=== PATIENT | female | born 1950 | race Caucasian/White ===

== ENCOUNTER 2018-06-11 02:55 | Inpatient (IN) | payer MEDICARE, MEDICAID ==
[~2018-06-11] VITALS: Ht 157.5 cm; Wt 120.2 kg
[~2018-06-11 02:55] MED LIST: ACET-3161 PO; ALPR-395 PO; AMIT10TA6 PO; AMLO5TAB88 PO; ATOR20TA65 PO; BENA5TAB6 PO; BUSP30TA2 PO; CLOP75TA16 PO; COR6 PO; DEXL60CA3 PO; DOCU-150 PO; FAMO-134 PO; FOLI-43 PO; FURO-152 PO; GABA800T97 PO; HYDR-3992 PO; HYDR-4009 PO; IBUP-2030 PO; ISOS60TA4 PO; LEVO500T2 MT; LORA0.5T2 PO; NITR0.4T49 SL; OXYB5TAB PO; PANT40TA4 PO; SENN-27 PO; SERT-112 PO; SOLI10TA PO; SULF1TAB47 PO; TEMA15CA PO; TETR12.52 PO; TRAZ-213 PO; ZOLP5TAB8 PO; lipozene PO
[2018-06-11] MEDS ORDERED: NALOXONE HCL 0.4 MG/ML 1ML VIAL IV ONE (03:45)
[2018-06-11 04:03] LABS: BASOPHILS % 1.4 % (0.0-2.0); EOSINOPHILS % 1.3 % (0.0-5.0); HEMATOCRIT. 35.9 % (36.0-48.0); HEMOGLOBIN. 11.5 g/dL (12.0-16.0); LYMPHOCYTES % 32.1 % (20.0-50.0); MEAN CORPUSCULAR HEMOGLOBIN 27.4 pg (28.0-32.0); MEAN CORPUSCULAR VOLUME 85.3 fL (81.0-99.0); MEAN PLATELET VOLUME 7.6 fl (7.4-10.4); MONOCYTES % 9.3 % (2.0-8.0); NEUTROPHILS % 55.9 % (40.0-76.0); PLATELET 249 x1000/uL (130-400); RED CELL DISTRIBUTION WIDTH 17.6 % (11.6-14.6)
[2018-06-11 04:08] LABS: PROTHROMBIN TIME 9.9 sec (9.1-11.1)
[2018-06-11 04:12] LABS: CHLORIDE 108 mEq/L (98-107)
[2018-06-11 04:18] LABS: ETHANOL BLOOD < 10 mg/dL; LDL CHOLESTEROL 79 mg/dL (5-100)
[2018-06-11 04:39] LABS: CLARITY URINE CLEAR (CLEAR); COLOR URINE YELLOW (YELLOW); KETONES URINE NEGATIVE (NEGATIVE); LEUKOCYTE ESTERASE URINE TRACE (NEGATIVE); NITRITE URINE NEGATIVE (NEGATIVE); OCCULT BLOOD URINE NEGATIVE (NEGATIVE); PROTEIN URINE NEGATIVE (NEGATIVE); SPECIFIC GRAVITY URINE 1.005 (1.005-1.030); UROBILINOGEN URINE 0.2 E.U./dL (0.2-1.0)
[2018-06-11 04:55] LABS: *AMPHETAMINES SCREEN URINE NEGATIVE (NEGATIVE); *BARBITURATES SCREEN URINE NEGATIVE (NEGATIVE); *BENZODIAZEPINES SCREEN URINE PRESUMTIVE POSITIVE (NEGATIVE); *COCAINE SCREEN URINE NEGATIVE (NEGATIVE); CANNABINOID URINE SCREEN NEGATIVE (NEGATIVE); METHADONE URINE SCREEN NEGATIVE (NEGATIVE); OPIATES URINE SCREEN PRESUMTIVE POSITIVE (NEGATIVE); PHENCYCLIDINE URINE SCREEN NEGATIVE (NEGATIVE)
[2018-06-11] MEDS ORDERED: CEFTRIAXONE 1 G PREMIX 50 ML IV NR (05:15)
[2018-06-11] MEDS ORDERED: ACETAMINOPHEN 325MG TABLET PO PRN (14:30)
[2018-06-11] MEDS ORDERED: CLONIDINE 0.1MG TABLET PO PRN (14:30)
[2018-06-11] MEDS ORDERED: ONDANSETRON HCL 4MG/2ML INJ IV PRN (14:30)
[2018-06-11] MEDS ORDERED: IPRATROPIUM/ALBUTEROL 0.5-3(2.5)MG/3ML NEB INH PRN (14:30)
[2018-06-11] MEDS ORDERED: GUAIFENESIN 200MG/10ML SUGAR FREE UDC PO PRN (14:30)
[2018-06-11] MEDS ORDERED: MAGNESIUM/ALUMINUM HYDROXIDE/SIMETHICONE 30ML UDC PO PRN (14:30)
[2018-06-11] MEDS ORDERED: HYDROCODONE/ACETAMINOPHEN 5/325MG TABLET PO PRN (15:00)
[2018-06-11] MEDS ORDERED: IPRATROPIUM/ALBUTEROL 0.5-3(2.5)MG/3ML NEB HHN PRN (15:00)
[2018-06-12] VITALS: BP 149/82
[2018-06-12 01:29] VITALS: BP 138/70
[2018-06-12 04:00] VITALS: BP 149/82
[2018-06-12 08:00] VITALS: BP 145/79
[2018-06-12] MEDS ORDERED: BENAZEPRIL 5MG TABLET PO SCH (09:00)
[2018-06-12] MEDS ORDERED: AMITRIPTYLINE 10MG TABLET PO SCH (09:00)
[2018-06-12] MEDS ORDERED: CARVEDILOL 6.25 MG TABLET PO SCH (09:00)
[2018-06-12] MEDS ORDERED: SERTRALINE HCL 100MG TABLET PO SCH (09:00)
[2018-06-12] MEDS ORDERED: ENOXAPARIN 30MG/0.3ML SYR SUBCUT SCH (09:00)
[2018-06-12 12:51] LABS: BASOPHILS % 0.9 % (0.0-2.0); EOSINOPHILS % 0.8 % (0.0-5.0); HEMATOCRIT. 38.2 % (36.0-48.0); HEMOGLOBIN. 12.3 g/dL (12.0-16.0); LYMPHOCYTES % 21.2 % (20.0-50.0); MEAN CORPUSCULAR HEMOGLOBIN 27.4 pg (28.0-32.0); MEAN CORPUSCULAR VOLUME 85.5 fL (81.0-99.0); MEAN PLATELET VOLUME 7.8 fl (7.4-10.4); MONOCYTES % 10.9 % (2.0-8.0); NEUTROPHILS % 66.2 % (40.0-76.0); PLATELET 264 x1000/uL (130-400); RED BLOOD CELL COUNT 4.47 mill/uL (4.2-5.4); RED CELL DISTRIBUTION WIDTH 17.1 % (11.6-14.6)
[2018-06-12 12:52] LABS: CHLORIDE 107 mEq/L (98-107)
[2018-06-12 15:45] VITALS: BP 135/75
[2018-06-13] MEDS ORDERED: SODIUM CHLORIDE 0.9% INJ 3ML FLUSH IVF SCH (06:00)
[2018-06-13] MEDS ORDERED: ATORVASTATIN CALCIUM 20MG TABLET PO SCH (21:00)
== END 2018-06-12 14:40 | disposition home or self-care (01) | DRG 92 ==
LOC: ER 02:55 → 5WST 05:37 → EDBEDREQ 05:41 → EDBEDREQSVC 05:41 → EDBEDREQTM 05:41 → ENRESERV 21:07
PROVIDERS: ADMIT Internal Medicine; ATTEND Internal Medicine
DX: G92 Toxic encephalopathy (principal); Z68.42 Body mass index [BMI] 45.0-49.9, adult; E78.00 Pure hypercholesterolemia, unspecified; I10 Essential (primary) hypertension; F41.1 Generalized anxiety disorder; F32.9 Major depressive disorder, single episode, unspecified; E11.9 Type 2 diabetes mellitus without complications; K21.9 Gastro-esophageal reflux disease without esophagitis; T50.995A Adverse effect of other drugs, medicaments and biological substances, initial encounter; M17.0 Bilateral primary osteoarthritis of knee; M79.7 Fibromyalgia; Z83.3 Family history of diabetes mellitus; Z86.73 Personal history of transient ischemic attack (TIA), and cerebral infarction without residual deficits; Z88.0 Allergy status to penicillin; Z88.8 Allergy status to other drugs, medicaments and biological substances; Z79.84 Long term (current) use of oral hypoglycemic drugs; Y92.89 Other specified places as the place of occurrence of the external cause; E66.9 Obesity, unspecified
CPT/HCPCS: 36415; 71045; 80048; 80305; 82962; 83721; 84484; 93005; 96365; 99285; G0482; J0696; J1650; J2310

== ENCOUNTER 2018-08-20 13:12 | Emergency (ER) | payer MEDICARE, MEDICAID ==
[~2018-08-20] VITALS: Ht 162.6 cm; Wt 127.0 kg
[2018-08-20] MEDS ORDERED: KETOROLAC 30MG/ML VIAL IV STA (13:56)
[2018-08-20] MEDS ORDERED: ONDANSETRON HCL 4MG/2ML INJ IV STA (13:56)
[2018-08-20] MEDS ORDERED: DEXAMETHASONE 10 MG/ML VIAL IV ONE (14:00)
[2018-08-20 14:51] LABS: BASOPHILS % 0.9 % (0.0-2.0); EOSINOPHILS % 1.2 % (0.0-5.0); HEMATOCRIT. 39.8 % (36.0-48.0); HEMOGLOBIN. 12.6 g/dL (12.0-16.0); LYMPHOCYTES % 17.7 % (20.0-50.0); MEAN CORPUSCULAR HEMOGLOBIN 27.4 pg (28.0-32.0); MEAN CORPUSCULAR VOLUME 86.8 fL (81.0-99.0); MEAN PLATELET VOLUME 8.1 fl (7.4-10.4); MONOCYTES % 10.2 % (2.0-8.0); PLATELET 237 x1000/uL (130-400); RED BLOOD CELL COUNT 4.59 mill/uL (4.2-5.4); RED CELL DISTRIBUTION WIDTH 14.6 % (11.6-14.6)
[2018-08-20 14:58] LABS: CHLORIDE 109 mEq/L (98-107)
[2018-08-20 17:18] VITALS: BP 140/92
== END 2018-08-20 17:43 | disposition home or self-care (01) ==
LOC: ER 13:14
DX: J06.9 Acute upper respiratory infection, unspecified (principal); R09.81 Nasal congestion; F32.9 Major depressive disorder, single episode, unspecified; E78.00 Pure hypercholesterolemia, unspecified; I10 Essential (primary) hypertension; M17.0 Bilateral primary osteoarthritis of knee; R19.7 Diarrhea, unspecified; R41.82 Altered mental status, unspecified; Z86.73 Personal history of transient ischemic attack (TIA), and cerebral infarction without residual deficits; Z79.899 Other long term (current) drug therapy; Z88.0 Allergy status to penicillin; Z88.1 Allergy status to other antibiotic agents; Z88.8 Allergy status to other drugs, medicaments and biological substances
CPT/HCPCS: 36415; 70450; 71045; 80053; 83880; 84484; 85025; 96374; 96375; 99284; J1100; J1885; J2405

== ENCOUNTER 2018-10-28 13:46 | Inpatient (IN) | payer MEDICARE, MEDICAID ==
[~2018-10-28] VITALS: Ht 152.4 cm; Wt 135.6 kg
[2018-10-28] MEDS ORDERED: IBUPROFEN 600MG TABLET PO ONE (17:45)
[2018-10-28 21:53] LABS: BASOPHILS % 0.8 % (0.0-2.0); EOSINOPHILS % 0.3 % (0.0-5.0); HEMATOCRIT. 36.4 % (36.0-48.0); HEMOGLOBIN. 12.2 g/dL (12.0-16.0); LYMPHOCYTES % 15.1 % (20.0-50.0); MEAN CORPUSCULAR VOLUME 80.3 fL (81.0-99.0); MONOCYTES % 11.8 % (2.0-8.0); PLATELET 257 x1000/uL (130-400); RED BLOOD CELL COUNT 4.53 mill/uL (4.2-5.4); RED CELL DISTRIBUTION WIDTH 13.8 % (11.6-14.6)
[2018-10-28 21:58] LABS: CHLORIDE 78 mEq/L (98-107)
[2018-10-28 22:00] LABS: INR 1.1; PROTHROMBIN TIME 10.6 sec (9.1-11.1)
[2018-10-28 22:04] LABS: CLARITY URINE CLEAR (CLEAR); COLOR URINE YELLOW (YELLOW); KETONES URINE NEGATIVE (NEGATIVE); LEUKOCYTE ESTERASE URINE 2+ (NEGATIVE); NITRITE URINE NEGATIVE (NEGATIVE); OCCULT BLOOD URINE 2+ (NEGATIVE); PROTEIN URINE NEGATIVE (NEGATIVE); SPECIFIC GRAVITY URINE 1.005 (1.005-1.030); UROBILINOGEN URINE 0.2 E.U./dL (0.2-1.0)
[2018-10-28] MEDS ORDERED: MORPHINE SULFATE 4 MG/ML CPJ (NOT FOR IM USE) IV ONE (22:15)
[2018-10-28] MEDS ORDERED: LEVOFLOXACIN 750MG PREMIX 150 ML IV ONE (22:15)
[2018-10-28] MEDS ORDERED: MAGNESIUM/ALUMINUM HYDROXIDE/SIMETHICONE 30ML UDC PO PRN (22:30)
[2018-10-28] MEDS ORDERED: NITROGLYCERIN 0.4MG TABLET SL SL PRN (22:30)
[2018-10-28] MEDS ORDERED: DEXTROSE 50% WATER 50ML SYRINGE IV PRN (22:30)
[2018-10-28] MEDS ORDERED: CLONIDINE 0.1MG TABLET PO PRN (22:30)
[2018-10-28] MEDS ORDERED: DOCUSATE SODIUM 100MG CAPSULE PO PRN (22:30)
[2018-10-28] MEDS ORDERED: ONDANSETRON HCL 4MG/2ML INJ IV PRN (22:30)
[2018-10-28] MEDS ORDERED: IPRATROPIUM/ALBUTEROL 0.5-3(2.5)MG/3ML NEB INH PRN (22:30)
[2018-10-28] MEDS ORDERED: GUAIFENESIN 200MG/10ML SUGAR FREE UDC PO PRN (22:30)
[2018-10-28] MEDS ORDERED: SODIUM CHLORIDE 0.9% 1,000 ML IV ONE (23:00)
[2018-10-28 23:16] LABS: T4 FREE 1.55 ng/dL (0.76-1.46)
[2018-10-29 00:07] LABS: FOLIC ACID (FOLATE) SERUM > 20.00 ng/mL (>5.38)
[2018-10-29 00:08] LABS: VITAMIN B12 SERUM 1183 pg/mL (211-911)
[2018-10-29] MEDS: ZOLPIDEM TARTRATE 5MG TABLET PO PRN ×2 (04:35→22:04)
[2018-10-29] MEDS ORDERED: ENOXAPARIN 40MG/0.4ML SYR SUBCUT SCH (05:21)
[2018-10-29] MEDS: INSULIN LISPRO 100 UNITS/ML SUBCUT SCH ×4 (08:09→20:16)
[2018-10-29] MEDS: BLOOD SUGAR DIAGNOSTIC STRIP TEST SCH ×4 (08:09→20:10)
[2018-10-29 08:18] LABS: CREATINE KINASE MB FRACTION 4.7 ng/mL (0.5-3.6)
[2018-10-29 08:29] LABS: CREATINE KINASE 1096 IU/L (26-192)
[2018-10-29 09:15] VITALS: BP 157/99
[2018-10-29] MEDS: TRAMADOL 50MG TABLET PO PRN ×2 (09:41→15:42)
[2018-10-29] MEDS: CARVEDILOL 3.125 MG TABLET PO SCH ×2 (10:31→20:16)
[2018-10-29] MEDS: ZINC SULFATE 220 MG ( 50 ) CAPSULE PO SCH (10:31)
[2018-10-29] MEDS: AMLODIPINE 10MG TABLET PO SCH (10:31)
[2018-10-29] MEDS: CLOPIDOGREL 75MG TABLET PO SCH (10:31)
[2018-10-29] MEDS: FAMOTIDINE 20MG TABLET PO SCH ×2 (10:31→20:15)
[2018-10-29] MEDS: ASCORBIC ACID 500 MG TABLET PO SCH ×2 (10:31→20:15)
[2018-10-29] MEDS: ASPIRIN 325MG EC TABLET PO SCH (10:32)
[2018-10-29] MEDS: CEFTRIAXONE 1 G PREMIX 50 ML IV SCH (10:44)
[2018-10-29 12:00] VITALS: BP 125/79
[2018-10-29 12:13] LABS: CHLORIDE 80 mEq/L (98-107)
[2018-10-29 12:39] LABS: *AMPHETAMINES SCREEN URINE NEGATIVE (NEGATIVE); *BARBITURATES SCREEN URINE NEGATIVE (NEGATIVE); *BENZODIAZEPINES SCREEN URINE NEGATIVE (NEGATIVE); *COCAINE SCREEN URINE NEGATIVE (NEGATIVE); METHADONE URINE SCREEN NEGATIVE (NEGATIVE); OPIATES URINE SCREEN PRESUMTIVE POSITIVE (NEGATIVE)
[2018-10-29 12:40] LABS: CANNABINOID URINE SCREEN NEGATIVE (NEGATIVE); PHENCYCLIDINE URINE SCREEN NEGATIVE (NEGATIVE)
[2018-10-29] MEDS: ACETAMINOPHEN 325MG TABLET PO PRN (14:08)
[2018-10-29 16:00] VITALS: BP 145/94
[2018-10-29 17:00] LABS: CREATINE KINASE 885 IU/L (26-192)
[2018-10-29 17:01] LABS: CREATINE KINASE MB FRACTION 4.5 ng/mL (0.5-3.6)
[2018-10-29] MEDS: SODIUM CHLORIDE 0.9% 1,000 ML IV SCH (18:48)
[2018-10-29] MEDS ORDERED: ENOXAPARIN 150MG/ML SYR SUBCUT SCH (19:00)
[2018-10-29] MEDS: ENOXAPARIN 150MG/ML SYR SUBCUT SCH (19:05)
[2018-10-29 20:00] VITALS: BP 142/76
[2018-10-29] MEDS ORDERED: ENOXAPARIN 120MG/0.8ML SYR SUBCUT SCH (21:00)
[2018-10-29] MEDS ORDERED: LEVOFLOXACIN 500MG PREMIX 100 ML IV SCH (23:00)
[2018-10-30] VITALS: BP 106/62
[2018-10-30 04:00] VITALS: BP 110/76
[2018-10-30] MEDS: ENOXAPARIN 150MG/ML SYR SUBCUT SCH ×2 (05:59→18:12)
[2018-10-30] MEDS: BLOOD SUGAR DIAGNOSTIC STRIP TEST SCH ×4 (06:02→20:56)
[2018-10-30] MEDS: INSULIN LISPRO 100 UNITS/ML SUBCUT SCH ×4 (06:07→20:55)
[2018-10-30] MEDS: SODIUM CHLORIDE 0.9% 1,000 ML IV SCH (06:11)
[2018-10-30 08:00] VITALS: BP 103/68
[2018-10-30] MEDS: CARVEDILOL 3.125 MG TABLET PO SCH ×2 (08:46→20:43)
[2018-10-30] MEDS: AMLODIPINE 10MG TABLET PO SCH (08:46)
[2018-10-30] MEDS: CLOPIDOGREL 75MG TABLET PO SCH (08:54)
[2018-10-30] MEDS: FAMOTIDINE 20MG TABLET PO SCH ×2 (08:55→20:43)
[2018-10-30] MEDS: ZINC SULFATE 220 MG ( 50 ) CAPSULE PO SCH (08:55)
[2018-10-30] MEDS: TRAMADOL 50MG TABLET PO PRN ×3 (08:55→20:43)
[2018-10-30] MEDS: ASPIRIN 325MG EC TABLET PO SCH (08:55)
[2018-10-30] MEDS: ASCORBIC ACID 500 MG TABLET PO SCH ×2 (08:55→20:43)
[2018-10-30] MEDS: CEFTRIAXONE 1 G PREMIX 50 ML IV SCH (10:59)
[2018-10-30 11:08] LABS: CHLORIDE 96 mEq/L (98-107)
[2018-10-30] MEDS: ACETAMINOPHEN 325MG TABLET PO PRN (13:18)
[2018-10-30 16:00] VITALS: BP 123/76
[2018-10-30 20:00] VITALS: BP 132/77
[2018-10-30] MEDS: ZOLPIDEM TARTRATE 5MG TABLET PO PRN (20:43)
[2018-10-30] MEDS ORDERED: LEVOFLOXACIN 500MG PREMIX 100 ML IV SCH (23:30)
[2018-10-31] VITALS (7 sets, daily range): BP systolic 118–160; BP diastolic 52–84
[2018-10-31] MEDS: TRAMADOL 50MG TABLET PO PRN ×2 (02:53→20:40)
[2018-10-31 05:51] LABS: EOSINOPHILS % 1.2 % (0.0-5.0); HEMATOCRIT. 34.7 % (36.0-48.0); HEMOGLOBIN. 11.2 g/dL (12.0-16.0); LYMPHOCYTES % 17.6 % (20.0-50.0); MEAN CORPUSCULAR HEMOGLOBIN 26.6 pg (28.0-32.0); MEAN CORPUSCULAR VOLUME 82.5 fL (81.0-99.0); MEAN PLATELET VOLUME 7.3 fl (7.4-10.4); MONOCYTES % 14.7 % (2.0-8.0); NEUTROPHILS % 65.5 % (40.0-76.0); PLATELET 253 x1000/uL (130-400); RED CELL DISTRIBUTION WIDTH 14.7 % (11.6-14.6)
[2018-10-31] MEDS: ENOXAPARIN 150MG/ML SYR SUBCUT SCH ×2 (06:35→17:46)
[2018-10-31] MEDS: BLOOD SUGAR DIAGNOSTIC STRIP TEST SCH ×3 (06:35→17:34)
[2018-10-31 07:07] LABS: CHLORIDE 99 mEq/L (98-107)
[2018-10-31 07:14] LABS: PHOSPHORUS 2.9 mg/dL (2.5-4.9)
[2018-10-31] MEDS: INSULIN LISPRO 100 UNITS/ML SUBCUT SCH ×3 (07:40→17:34)
[2018-10-31] MEDS: ACETAMINOPHEN 325MG TABLET PO PRN (07:49)
[2018-10-31] MEDS: ASPIRIN 325MG EC TABLET PO SCH (08:45)
[2018-10-31] MEDS: ASCORBIC ACID 500 MG TABLET PO SCH (08:45)
[2018-10-31] MEDS: CARVEDILOL 3.125 MG TABLET PO SCH (08:45)
[2018-10-31] MEDS: CLOPIDOGREL 75MG TABLET PO SCH (08:45)
[2018-10-31] MEDS: FAMOTIDINE 20MG TABLET PO SCH (08:45)
[2018-10-31] MEDS: AMLODIPINE 10MG TABLET PO SCH (08:45)
[2018-10-31] MEDS: ZINC SULFATE 220 MG ( 50 ) CAPSULE PO SCH (08:45)
[2018-10-31] MEDS ORDERED: CEFTRIAXONE 1 G PREMIX 50 ML IV SCH ×2 (11:00→12:00)
[2018-10-31] MEDS: SODIUM CHLORIDE 0.9% 1,000 ML IV SCH (11:09)
[2018-10-31] MEDS ORDERED: NA PHOS,M-B/NA PHOS,DI-BA ENEMA 118ML PR NR (16:30)
[2018-10-31] MEDS ORDERED: LACTULOSE 20G/30ML UDC PO PRN (16:30)
[2018-10-31] MEDS ORDERED: LEVOFLOXACIN 500MG PREMIX 100 ML IV SCH (21:00)
== END 2018-10-31 20:53 | DRG 640 ==
LOC: ER 14:48 → 8WST 22:09 → EDBEDREQTM 22:13 → EDBEDREQSVC 22:13 → EDBEDREQ 22:13 → SUPCPDRO 22:18 → ENRESERV 10-29 07:29
PROVIDERS: ADMIT Internal Medicine; ATTEND Internal Medicine
DX: E87.1 Hypo-osmolality and hyponatremia (principal); G92 Toxic encephalopathy; M62.82 Rhabdomyolysis; N39.0 Urinary tract infection, site not specified; I82.412 Acute embolism and thrombosis of left femoral vein; Z68.43 Body mass index [BMI] 50.0-59.9, adult; F41.9 Anxiety disorder, unspecified; I11.0 Hypertensive heart disease with heart failure; I50.9 Heart failure, unspecified; E66.9 Obesity, unspecified; J44.9 Chronic obstructive pulmonary disease, unspecified; G90.8 Other disorders of autonomic nervous system; M79.7 Fibromyalgia; W05.0XXA Fall from non-moving wheelchair, initial encounter; Y93.89 Activity, other specified; Y92.89 Other specified places as the place of occurrence of the external cause; Z82.49 Family history of ischemic heart disease and other diseases of the circulatory system; Y99.8 Other external cause status; Z88.0 Allergy status to penicillin; Z88.8 Allergy status to other drugs, medicaments and biological substances; Z79.899 Other long term (current) drug therapy; Z79.02 Long term (current) use of antithrombotics/antiplatelets
CPT/HCPCS: 36415; 71045; 73700; 80048; 80061; 80305; 82533; 82550; 82553; 82607; 82746; 82962; 83036; 83540; 83550; 83735; 84100; 84439; 84443; 84484; 93005; 93306; 93970; 96365; 96366; 96375; 99285; J0696; J1650; J1956; J2270; J7030

== ENCOUNTER 2020-08-06 08:50 | Inpatient (IN) | payer MEDICARE, MEDICAID ==
[~2020-08-06] VITALS: Ht 162.6 cm; Wt 136.5 kg
[~2020-08-06 08:50] MED LIST changes: +CLOP-31 PO; -CLOP75TA16 PO; -PANT40TA4 PO; +PANT40TA51 PO; -TRAZ-213 PO; +TRAZ-252 PO
[2020-08-06 09:50] LABS: CHLORIDE 103 mEq/L (98-107)
[2020-08-06 09:53] LABS: BASOPHILS % 0.4 % (0.0-2.0); EOSINOPHILS % 0.2 % (0.0-5.0); HEMATOCRIT. 44.7 % (36.0-48.0); HEMOGLOBIN. 14.8 g/dL (12.0-16.0); LYMPHOCYTES % 8.5 % (20.0-50.0); MEAN CORPUSCULAR HEMOGLOBIN 28.3 pg (28.0-32.0); MEAN CORPUSCULAR VOLUME 85.8 fL (81.0-99.0); MONOCYTES % 6.5 % (2.0-8.0); NEUTROPHILS % 84.4 % (40.0-76.0); PLATELET 269 x1000/uL (130-400); RED BLOOD CELL COUNT 5.22 mill/uL (4.2-5.4); RED CELL DISTRIBUTION WIDTH 14.2 % (11.6-14.6)
[2020-08-06 09:59] LABS: CREATINE KINASE 245 IU/L (26-192)
[2020-08-06 10:06] LABS: D-DIMER 5.01 mg/L FEU (<0.50); INR 1.1; PROTHROMBIN TIME 11.6 sec (9.6-11.0)
[2020-08-06] MEDS ORDERED: LEVOFLOXACIN 750MG PREMIX 150 ML IV ONE (11:00)
[2020-08-06 12:23] LABS: BG BASE EXCESS 1.5 mmol/L (-2.0-2.0); BG CARBOXYHEMOGLOBIN 1.1 % (0.5-1.5); BG DEOXYHEMOGLOBIN 7.4 % (0.0-5.0); BG FRACTION INSPIRED OXYGEN 100; BG HCO3 ACT 27.2 mmol/L (22.0-26.0); BG METHEMOGLOBIN 0.1 % (0.0-1.5); BG OXYGEN SATURATION 92.5 % (92.0-98.5); BG OXYHEMOGLOBIN 91.4 % (94.0-97.0); BG PCO2 46.5 mmHg (35.0-45.0); BG PH 7.385 (7.350-7.450); BG PO2 66.4 mmHg (75.0-100.0); BG SAMPLE SITE RIGHT RADIAL; BG TOTAL HEMOGLOBIN 15.5 g/dL (12.0-18.0); BG TOTAL RESPIRATORY RATE 20 b/min; BG VENT MODE MASK - BIPAP
[2020-08-06] MEDS ORDERED: MORPHINE SULFATE 4 MG/ML CPJ (NOT FOR IM USE) IV ONE (12:45)
[2020-08-06] MEDS: LORAZEPAM 2MG/ML CPJ IV PRN ×2 (15:19→20:43)
[2020-08-06 20:27] LABS: CLARITY URINE CLEAR (CLEAR); COLOR URINE DARK YELLOW (YELLOW); KETONES URINE NEGATIVE (NEGATIVE); LEUKOCYTE ESTERASE URINE 1+ (NEGATIVE); NITRITE URINE NEGATIVE (NEGATIVE); OCCULT BLOOD URINE TRACE (NEGATIVE); PROTEIN URINE 1+ (NEGATIVE); SPECIFIC GRAVITY URINE 1.023 (1.005-1.030)
[2020-08-06] MEDS ORDERED: ACETAMINOPHEN 325MG TABLET PO PRN ×2 (22:15)
[2020-08-06] MEDS ORDERED: MAGNESIUM/ALUMINUM HYDROXIDE/SIMETHICONE 30ML UDC PO PRN (22:15)
[2020-08-06] MEDS ORDERED: BENZONATATE 100MG CAPSULE PO PRN (22:15)
[2020-08-06] MEDS ORDERED: DIPHENHYDRAMINE 50MG/ML VIAL IV PRN (22:15)
[2020-08-06] MEDS ORDERED: ALBUTEROL 6.7GM HFA INHALER ORI PRN (22:15)
[2020-08-06] MEDS ORDERED: CLONIDINE 0.1MG TABLET PO PRN (22:15)
[2020-08-06] MEDS ORDERED: ONDANSETRON HCL 4MG/2ML INJ IV PRN (22:15)
[2020-08-06] MEDS ORDERED: POTASSIUM CHLORIDE INJ 40 MEQ in DEXT 5% WATER 250 ML IV NR (23:00)
[2020-08-06] MEDS ORDERED: LEVOFLOXACIN 500MG PREMIX 100 ML IV NR (23:00)
[2020-08-07] MEDS: ENOXAPARIN 40MG/0.4ML SYR SUBCUT SCH (01:28)
[2020-08-07] MEDS: LORAZEPAM 2MG/ML CPJ IV PRN (03:54)
[2020-08-07] MEDS: SODIUM CHLORIDE 0.9% INJ 3ML FLUSH IVF SCH ×3 (06:07→22:00)
[2020-08-07 06:32] LABS: HEMATOCRIT. 43.6 % (36.0-48.0); HEMOGLOBIN. 14.2 g/dL (12.0-16.0); MEAN CORPUSCULAR HEMOGLOBIN 27.5 pg (28.0-32.0); MEAN CORPUSCULAR VOLUME 84.8 fL (81.0-99.0); MEAN PLATELET VOLUME 8.6 fl (7.4-10.4); PLATELET 179 x1000/uL (130-400); RED BLOOD CELL COUNT 5.14 mill/uL (4.2-5.4); RED CELL DISTRIBUTION WIDTH 14.3 % (11.6-14.6)
[2020-08-07 06:48] LABS: PHOSPHORUS 2.3 mg/dL (2.5-4.9)
[2020-08-07 08:14] LABS: PLATELET ESTIMATE NORMAL
[2020-08-07 09:58] LABS: BG FRACTION INSPIRED OXYGEN 100; BG OXYGEN SATURATION 82.8 % (92.0-98.5); BG PCO2 48.8 mmHg (35.0-45.0); BG PH 7.377 (7.350-7.450); BG PO2 47.3 mmHg (75.0-100.0); BG VENT MODE MASK - BIPAP
[2020-08-07] MEDS: FAMOTIDINE 20MG TABLET PO SCH (12:12)
[2020-08-07] MEDS: DEXAMETHASONE 10 MG/ML VIAL IV SCH (12:12)
[2020-08-07] MEDS ORDERED: LIDOCAINE HCL 1% 20ML VIAL (Pyxis) INJ INFIL ONE (12:30)
[2020-08-07] MEDS ORDERED: LIDOCAINE HCL 1% 20ML VIAL (Pyxis) INJ ONE (12:37)
[2020-08-07] MEDS ORDERED: ERGOCALCIFEROL 50000UNITS CAPSULE PO SCH (14:30)
[2020-08-07 16:06] LABS: BG BASE EXCESS -0.9 mmol/L (-2.0-2.0); BG CARBOXYHEMOGLOBIN 0.8 % (0.5-1.5); BG DEOXYHEMOGLOBIN 14.5 % (0.0-5.0); BG HCO3 ACT 24.6 mmol/L (22.0-26.0); BG METHEMOGLOBIN 0.3 % (0.0-1.5); BG OXYGEN SATURATION 85.3 % (92.0-98.5); BG OXYHEMOGLOBIN 84.4 % (94.0-97.0); BG PCO2 43.7 mmHg (35.0-45.0); BG PH 7.368 (7.350-7.450); BG PO2 51.4 mmHg (75.0-100.0); BG SAMPLE SITE RIGHT BRACHIAL; BG TOTAL HEMOGLOBIN 14.7 g/dL (12.0-18.0); BG VENT MODE MASK - BIPAP
[2020-08-07] MEDS ORDERED: CHOLECALCIFEROL (D3) 1000 UNIT TABLET PO SCH (16:30)
[2020-08-07] MEDS ORDERED: FENTANYL CITRATE/PF 1,000 MCG in SODIUM CHLORIDE 0.9% 80 ML IV PRN (17:00)
[2020-08-07] MEDS ORDERED: MIDAZOLAM HCL 100 MG in DEXT 5% WATER 80 ML IV ONE (17:00)
[2020-08-07] MEDS ORDERED: ETOMIDATE 2MG/ML 10ML VIAL IV ONE (17:30)
[2020-08-07 18:08] LABS: BG BASE EXCESS -0.2 mmol/L (-2.0-2.0); BG CARBOXYHEMOGLOBIN 0.7 % (0.5-1.5); BG DEOXYHEMOGLOBIN 18.2 % (0.0-5.0); BG HCO3 ACT 28.2 mmol/L (22.0-26.0); BG METHEMOGLOBIN 0.3 % (0.0-1.5); BG OXYGEN SATURATION 81.6 % (92.0-98.5); BG OXYHEMOGLOBIN 80.8 % (94.0-97.0); BG PH 7.276 (7.350-7.450); BG PO2 49.4 mmHg (75.0-100.0); BG SAMPLE SITE RIGHT BRACHIAL; BG TOTAL HEMOGLOBIN 15.1 g/dL (12.0-18.0); BG VENT MODE VENT - AC
[2020-08-07] MEDS: MIDAZOLAM HCL 100 MG in DEXT 5% WATER 100 ML IV PRN (19:59)
[2020-08-07 20:41] LABS: BG BASE EXCESS 1.9 mmol/L (-2.0-2.0); BG CARBOXYHEMOGLOBIN 0.7 % (0.5-1.5); BG DEOXYHEMOGLOBIN 7.3 % (0.0-5.0); BG FRACTION INSPIRED OXYGEN 100; BG HCO3 ACT 27.6 mmol/L (22.0-26.0); BG METHEMOGLOBIN 0.1 % (0.0-1.5); BG OXYGEN SATURATION 92.6 % (92.0-98.5); BG OXYHEMOGLOBIN 91.9 % (94.0-97.0); BG PCO2 47.1 mmHg (35.0-45.0); BG PH 7.386 (7.350-7.450); BG SAMPLE SITE RIGHT RADIAL; BG TOTAL HEMOGLOBIN 15.3 g/dL (12.0-18.0); BG TOTAL RESPIRATORY RATE 24 b/min; BG VENT MODE VENT - AC
[2020-08-07] MEDS: DOXYCYCLINE HYCLATE 100MG CAPSULE PO SCH (21:00)
[2020-08-07] MEDS: ASCORBIC ACID 500 MG TABLET PO SCH (21:00)
[2020-08-07] MEDS ORDERED: MORPHINE SULFATE 2 MG/ML CPJ (NOT FOR IM USE) IV PRN (21:00)
[2020-08-07] MEDS ORDERED: LEVOFLOXACIN 250MG PREMIX 50ML IV SCH (23:00)
[2020-08-07] MEDS ORDERED: FENTANYL IV PRN (23:15)
[2020-08-07] MEDS ORDERED: SODIUM CHLORIDE 0.9% IV PRN (23:15)
[2020-08-08] MEDS ORDERED: FENTANYL CITRATE 2,500 MCG in SODIUM CHLORIDE 0.9% 200 ML IV PRN ×2 (05:15→21:00)
[2020-08-08] MEDS: SODIUM CHLORIDE 0.9% INJ 3ML FLUSH IVF SCH ×3 (06:06→22:46)
[2020-08-08] MEDS: DEXAMETHASONE 10 MG/ML VIAL IV SCH (08:08)
[2020-08-08] MEDS: FAMOTIDINE 20MG TABLET PO SCH (08:08)
[2020-08-08] MEDS: ASCORBIC ACID 500 MG TABLET PO SCH ×2 (08:08→21:50)
[2020-08-08] MEDS: DOXYCYCLINE HYCLATE 100MG CAPSULE PO SCH ×2 (08:08→21:50)
[2020-08-08] MEDS: MIDAZOLAM HCL 100 MG in DEXT 5% WATER 100 ML IV PRN (13:40)
[2020-08-08] MEDS: LORAZEPAM 2MG/ML CPJ IV PRN (20:23)
[2020-08-09] MEDS: LORAZEPAM 2MG/ML CPJ IV PRN (05:01)
[2020-08-09 05:31] LABS: HEMATOCRIT. 44.1 % (36.0-48.0); HEMOGLOBIN. 14.2 g/dL (12.0-16.0); MEAN CORPUSCULAR HEMOGLOBIN 27.5 pg (28.0-32.0); MEAN CORPUSCULAR VOLUME 85.2 fL (81.0-99.0); PLATELET 141 x1000/uL (130-400); RED BLOOD CELL COUNT 5.17 mill/uL (4.2-5.4); RED CELL DISTRIBUTION WIDTH 14.7 % (11.6-14.6)
[2020-08-09] MEDS: SODIUM CHLORIDE 0.9% INJ 3ML FLUSH IVF SCH ×2 (07:30→16:23)
[2020-08-09] MEDS: DOXYCYCLINE HYCLATE 100MG CAPSULE PO SCH (08:27)
[2020-08-09] MEDS: FAMOTIDINE 20MG TABLET PO SCH (08:27)
[2020-08-09] MEDS: DEXAMETHASONE 10 MG/ML VIAL IV SCH (08:27)
[2020-08-09] MEDS: ASCORBIC ACID 500 MG TABLET PO SCH (08:28)
[2020-08-09] MEDS: MIDAZOLAM HCL 100 MG in DEXT 5% WATER 100 ML IV PRN (09:59)
[2020-08-09] MEDS ORDERED: POTASSIUM CHLORIDE 20MEQ/PACKET NG NR (10:00)
[2020-08-09 15:57] LABS: PLATELET ESTIMATE NORMAL
[2020-08-10] MEDS: DOXYCYCLINE HYCLATE 100MG CAPSULE PO SCH ×2 (01:18→09:50)
[2020-08-10] MEDS: ENOXAPARIN 40MG/0.4ML SYR SUBCUT SCH (01:19)
[2020-08-10] MEDS: SODIUM CHLORIDE 0.9% INJ 3ML FLUSH IVF SCH ×4 (01:19→14:00)
[2020-08-10] MEDS: ASCORBIC ACID 500 MG TABLET PO SCH ×2 (01:19→09:50)
[2020-08-10 08:27] LABS: BG CARBOXYHEMOGLOBIN 0.6 % (0.5-1.5); BG DEOXYHEMOGLOBIN 1.2 % (0.0-5.0); BG HCO3 ACT 22.2 mmol/L (22.0-26.0); BG METHEMOGLOBIN 0.1 % (0.0-1.5); BG OXYGEN SATURATION 98.8 % (92.0-98.5); BG OXYHEMOGLOBIN 98.1 % (94.0-97.0); BG PCO2 33.1 mmHg (35.0-45.0); BG PH 7.444 (7.350-7.450); BG PO2 166.7 mmHg (75.0-100.0); BG SAMPLE SITE RIGHT BRACHIAL; BG TOTAL HEMOGLOBIN 15.6 g/dL (12.0-18.0); BG VENT MODE VENT - AC
[2020-08-10] MEDS: FAMOTIDINE 20MG TABLET PO SCH (09:04)
[2020-08-10] MEDS: DEXAMETHASONE 10 MG/ML VIAL IV SCH (09:04)
[2020-08-10] MEDS: MIDAZOLAM HCL 100 MG in DEXT 5% WATER 100 ML IV PRN (17:50)
[2020-08-11] MEDS: DOXYCYCLINE HYCLATE 100MG CAPSULE PO SCH ×3 (02:00→23:58)
[2020-08-11] MEDS: MIDAZOLAM HCL 100 MG in DEXT 5% WATER 100 ML IV PRN (04:15)
[2020-08-11] MEDS: SODIUM CHLORIDE 0.9% INJ 3ML FLUSH IVF SCH ×3 (08:00→23:11)
[2020-08-11] MEDS: ASCORBIC ACID 500 MG TABLET PO SCH ×2 (11:47→23:58)
[2020-08-11] MEDS: FAMOTIDINE 20MG TABLET PO SCH (11:48)
[2020-08-11] MEDS: DEXAMETHASONE 10 MG/ML VIAL IV SCH (11:48)
[2020-08-11 12:56] LABS: BG BASE EXCESS -3.2 mmol/L (-2.0-2.0); BG CARBOXYHEMOGLOBIN 0.3 % (0.5-1.5); BG DEOXYHEMOGLOBIN 4.2 % (0.0-5.0); BG FRACTION INSPIRED OXYGEN 100; BG HCO3 ACT 21.5 mmol/L (22.0-26.0); BG METHEMOGLOBIN 0.3 % (0.0-1.5); BG OXYGEN SATURATION 95.8 % (92.0-98.5); BG OXYHEMOGLOBIN 95.2 % (94.0-97.0); BG PCO2 37.9 mmHg (35.0-45.0); BG PH 7.372 (7.350-7.450); BG PO2 87.1 mmHg (75.0-100.0); BG SAMPLE SITE LEFT RADIAL; BG TOTAL HEMOGLOBIN 17.3 g/dL (12.0-18.0); BG TOTAL RESPIRATORY RATE 24 b/min; BG VENT MODE VENT - AC
[2020-08-11] MEDS ORDERED: MIDAZOLAM HCL 100 MG in SODIUM CHLORIDE 0.9% 80 ML IV PRN (17:00)
[2020-08-11] MEDS: ENOXAPARIN 40MG/0.4ML SYR SUBCUT SCH (23:57)
[2020-08-12] VITALS (19 sets, daily range): BP systolic 78–119; BP diastolic 55–74
[2020-08-12 05:35] LABS: HEMATOCRIT. 51.9 % (36.0-48.0); HEMOGLOBIN. 16.9 g/dL (12.0-16.0); MEAN CORPUSCULAR HEMOGLOBIN 28.1 pg (28.0-32.0); MEAN CORPUSCULAR VOLUME 86.2 fL (81.0-99.0); MEAN PLATELET VOLUME 10.3 fl (7.4-10.4); PLATELET 122 x1000/uL (130-400); RED BLOOD CELL COUNT 6.02 mill/uL (4.2-5.4)
[2020-08-12] MEDS: SODIUM CHLORIDE 0.9% INJ 3ML FLUSH IVF SCH ×3 (06:25→21:42)
[2020-08-12] MEDS: DEXAMETHASONE 10 MG/ML VIAL IV SCH (10:00)
[2020-08-12] MEDS: ASCORBIC ACID 500 MG TABLET PO SCH ×2 (10:00→21:40)
[2020-08-12] MEDS: DOXYCYCLINE HYCLATE 100MG CAPSULE PO SCH ×2 (10:20→21:40)
[2020-08-12] MEDS: FAMOTIDINE 20MG TABLET PO SCH (10:30)
[2020-08-12] MEDS: ENOXAPARIN 40MG/0.4ML SYR SUBCUT SCH ×2 (11:30→21:42)
[2020-08-12] MEDS ORDERED: DEXT 5%/0.2% NACL 1,000 ML IV SCH (12:15)
[2020-08-12 13:17] LABS: BG BASE EXCESS -6.6 mmol/L (-2.0-2.0); BG CARBOXYHEMOGLOBIN 0.3 % (0.5-1.5); BG DEOXYHEMOGLOBIN 3.9 % (0.0-5.0); BG HCO3 ACT 17.9 mmol/L (22.0-26.0); BG OXYGEN SATURATION 96.1 % (92.0-98.5); BG OXYHEMOGLOBIN 95.8 % (94.0-97.0); BG PCO2 33.5 mmHg (35.0-45.0); BG PH 7.345 (7.350-7.450); BG PO2 87.2 mmHg (75.0-100.0); BG SAMPLE SITE RIGHT RADIAL; BG VENT MODE VENT - AC
[2020-08-12 15:55] LABS: PLATELET ESTIMATE DECREASED
[2020-08-12] MEDS: DEXTROSE 5% WATER 1,000 ML IV SCH (17:00)
[2020-08-12] MEDS: FENTANYL CITRATE 2,500 MCG in SODIUM CHLORIDE 0.9% 200 ML IV PRN (19:00)
[2020-08-12] MEDS ORDERED: MIDAZOLAM HCL 100 MG in DEXT 5% WATER 80 ML IV PRN (19:30)
[2020-08-12] MEDS: IPRATROPIUM/ALBUTEROL 0.5-3(2.5)MG/3ML NEB HHN SCH (21:00)
[2020-08-13] VITALS (47 sets, daily range): BP systolic 54–175; BP diastolic 22–103
[2020-08-13] MEDS: IPRATROPIUM/ALBUTEROL 0.5-3(2.5)MG/3ML NEB HHN SCH ×5 (00:40→15:50)
[2020-08-13] MEDS: DEXTROSE 5% WATER 1,000 ML IV SCH ×3 (03:28→23:00)
[2020-08-13] MEDS: FENTANYL CITRATE 2,500 MCG in SODIUM CHLORIDE 0.9% 200 ML IV PRN (04:15)
[2020-08-13 06:06] LABS: HEMATOCRIT. 53.1 % (36.0-48.0); HEMOGLOBIN. 16.9 g/dL (12.0-16.0); MEAN CORPUSCULAR HEMOGLOBIN 28.1 pg (28.0-32.0); MEAN CORPUSCULAR VOLUME 88.1 fL (81.0-99.0); PLATELET 124 x1000/uL (130-400); RED BLOOD CELL COUNT 6.03 mill/uL (4.2-5.4)
[2020-08-13 06:08] LABS: PHOSPHORUS 6.8 mg/dL (2.5-4.9)
[2020-08-13] MEDS: SODIUM CHLORIDE 0.9% INJ 3ML FLUSH IVF SCH ×3 (06:30→22:00)
[2020-08-13 09:31] LABS: BG BASE EXCESS -9.2 mmol/L (-2.0-2.0); BG CARBOXYHEMOGLOBIN 0.5 % (0.5-1.5); BG DEOXYHEMOGLOBIN 4.5 % (0.0-5.0); BG FRACTION INSPIRED OXYGEN 100; BG HCO3 ACT 16.3 mmol/L (22.0-26.0); BG METHEMOGLOBIN 0.3 % (0.0-1.5); BG OXYGEN SATURATION 95.5 % (92.0-98.5); BG OXYHEMOGLOBIN 94.7 % (94.0-97.0); BG PH 7.287 (7.350-7.450); BG PO2 86.5 mmHg (75.0-100.0); BG SAMPLE SITE RIGHT RADIAL; BG TOTAL RESPIRATORY RATE 26 b/min; BG VENT MODE VENT - AC/VC
[2020-08-13] MEDS: ASCORBIC ACID 500 MG TABLET PO SCH ×2 (10:52→21:00)
[2020-08-13] MEDS: DEXAMETHASONE 10 MG/ML VIAL IV SCH (10:52)
[2020-08-13] MEDS: FAMOTIDINE 20MG TABLET PO SCH (10:53)
[2020-08-13] MEDS: ENOXAPARIN 40MG/0.4ML SYR SUBCUT SCH (10:53)
[2020-08-13 14:22] LABS: NUCLEATED RED BLOOD CELLS 2 /100 WBC
[2020-08-13 14:23] LABS: PLATELET ESTIMATE SLIGHTLY DECREASED
[2020-08-13] MEDS ORDERED: SODIUM CHLORIDE 0.9% 1000ML BAG (SEPSIS BOLUS) IV ONE (16:45)
[2020-08-13] MEDS ORDERED: SODIUM CHLORIDE 0.9% 500 ML IV NR (17:00)
[2020-08-13] MEDS: NOREPINEPHRINE 8 MG in DEXTROSE 5% WATER 250 ML IV PRN (21:07)
[2020-08-13] MEDS ORDERED: VASOPRESSIN 20 UNIT in SODIUM CHLORIDE 0.9% 99 ML IV PRN (23:00)
[2020-08-13] MEDS ORDERED: PHENYLEPHRINE 100 MG in DEXT 5% WATER 240 ML IV PRN (23:00)
[2020-08-13 23:56] LABS: BG BASE EXCESS -18.2 mmol/L (-2.0-2.0); BG CARBOXYHEMOGLOBIN 0.1 % (0.5-1.5); BG DEOXYHEMOGLOBIN 14.2 % (0.0-5.0); BG FRACTION INSPIRED OXYGEN 100; BG HCO3 ACT 11.1 mmol/L (22.0-26.0); BG METHEMOGLOBIN 0.3 % (0.0-1.5); BG OXYGEN SATURATION 85.7 % (92.0-98.5); BG OXYHEMOGLOBIN 85.4 % (94.0-97.0); BG PCO2 38.1 mmHg (35.0-45.0); BG PH 7.081 (7.350-7.450); BG PO2 64.3 mmHg (75.0-100.0); BG SAMPLE SITE RIGHT RADIAL; BG TOTAL HEMOGLOBIN 18.8 g/dL (12.0-18.0); BG VENT MODE VENT - AC
[2020-08-14] VITALS: BP 79/27
[2020-08-14] MEDS ORDERED: SODIUM BICARBONATE 8.4% 1 MEQ/ML 50ML SYR IV SCH (01:00)
[2020-08-14] MEDS: NOREPINEPHRINE 8 MG in DEXTROSE 5% WATER 250 ML IV PRN (01:08)
[2020-08-14] MEDS ORDERED: ENOXAPARIN 40MG/0.4ML SYR SUBCUT SCH (09:00)
== END 2020-08-14 06:25 | disposition expired | DRG 870 ==
LOC: ER 08:50 → MICUSO 12:22 → EDBEDREQ 12:29 → EDBEDREQSVC 12:29 → 6WST 08-07 08:23 → MICUSO 08-07 10:11 → 7WST 08-07 10:13 → MICUSO 08-07 11:02 → CVICU 08-12 15:03
PROVIDERS: ADMIT Internal Medicine; ATTEND Internal Medicine
PROC: 5A09457 Assistance with Respiratory Ventilation, 24-96 Consecutive Hours, Continuous Positive Airway Pressure (ICD-10-PCS; 2020-08-06)
PROC: 5A1955Z Respiratory Ventilation, Greater than 96 Consecutive Hours (ICD-10-PCS; principal; 2020-08-07)
PROC: 0BH17EZ Insertion of Endotracheal Airway into Trachea, Via Natural or Artificial Opening (ICD-10-PCS; 2020-08-07)
PROC: 05HY33Z Insertion of Infusion Device into Upper Vein, Percutaneous Approach (ICD-10-PCS; 2020-08-07)
PROC: B54MZZA Ultrasonography of Right Upper Extremity Veins, Guidance (ICD-10-PCS; 2020-08-07)
DX: A41.89 Other specified sepsis (principal); J12.89 Other viral pneumonia; J96.01 Acute respiratory failure with hypoxia; U07.1 COVID-19; J96.02 Acute respiratory failure with hypercapnia; J44.0 Chronic obstructive pulmonary disease with (acute) lower respiratory infection; N17.9 Acute kidney failure, unspecified; E87.1 Hypo-osmolality and hyponatremia; E87.0 Hyperosmolality and hypernatremia; E87.2 Acidosis; Z68.43 Body mass index [BMI] 50.0-59.9, adult; Z51.5 Encounter for palliative care; I50.9 Heart failure, unspecified; Z66 Do not resuscitate; R65.20 Severe sepsis without septic shock; E66.01 Morbid (severe) obesity due to excess calories; B97.89 Other viral agents as the cause of diseases classified elsewhere; E87.6 Hypokalemia; D69.6 Thrombocytopenia, unspecified; E78.00 Pure hypercholesterolemia, unspecified; R74.01 Elevation of levels of liver transaminase levels; E78.5 Hyperlipidemia, unspecified; I11.0 Hypertensive heart disease with heart failure; Z79.01 Long term (current) use of anticoagulants; Z82.49 Family history of ischemic heart disease and other diseases of the circulatory system; Z88.0 Allergy status to penicillin; Z88.8 Allergy status to other drugs, medicaments and biological substances; Z79.899 Other long term (current) drug therapy; Z79.1 Long term (current) use of non-steroidal anti-inflammatories (NSAID)
CPT/HCPCS: 36415; 36600; 71045; 76770; 76937; 80048; 80053; 81003; 82375; 82550; 82805; 83605; 83615; 83735; 83880; 84100; 84145; 84484; 85025; 85379; 85384; 86140; 87804; 93005; 93970; 94002; 94003; 94640; 94660; 99291; C1725; J1100; J1650; J1956; J2060; J2250; J2270; J2370; J3010; J3480; J3490; J7042; J7050; J7060; J7070; U0003